=== PATIENT | female | born 1995 | race Hispanic/Latino ===

== ENCOUNTER 2018-06-28 12:21 | Emergency (ER) | payer SELFPAY ==
--- NOTE | 2018-06-28 15:23 | ER ---
Nurse's Notes [facility] Name: Leni Cason Age: 22 yrs Sex: Female : 1995 Arrival Date: 06/28/2018 Time: 12:24 Bed Waiting Private MD: None, None Diagnosis: Presentation: 06/28 12:29 Presenting complaint: Patient states: upper abd pain and vomiting since last night. aa5 Denies diarrhea. Transition of care: patient was not received from another setting of care. Onset of symptoms was June 2018. Risk Assessment: Do you want to hurt yourself or someone else? Patient reports no desire to harm self or others. Initial Sepsis Screen: Does the patient meet any 2 criteria? No. Patient's initial sepsis screen is negative. Does the patient have a suspected source of infection? No. Patient's initial sepsis screen is negative. Care prior to arrival: None. 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 - Social history:: Smoking status: Patient/guardian denies using tobacco. - Ebola Screening: : No symptoms or risks identified at this time. Assessment: 15:22 Reassessment: pt not in lobby. iw Vital Signs: 12:30 BP 115 / 78; Pulse 99; Resp 18 S; Temp 98.5(O); Pulse Ox 100% on R/A; Weight 77.11 kg aa5 (R); Height 5 ft. 4 in. (162.56 cm) (R); Pain 8/10; 12:30 Body Mass Index 29.18 (77.11 kg, 162.56 cm) aa5 ED Course: 12:24 Patient arrived in ED. mr 12:24 None, None is Private Physician. mr 12:29 Triage completed. aa5 12:29 Arm band placed on. aa5 14:34 Keyla Sanford F[facility]-C [facility] snw 14:34 Kwame Agustin MD is Attending Physician. snw 14:48 Patient's name was called from ER lobby. No response. hj 15:22 Juliana Holley, RN is Primary Nurse. iw Administered Medications: No medications were administered Outcome: 15:23 Patient left the ED. iw 15:23 Eloped from waiting room, before seeing physician Time discovered patient gone: June at 15:23 Signatures: Keyla Sanford, DIE MAKER-C DIE MAKER-Csnw Lakisha Zamorano mr Juliana Holley, RN RN Faiza Aaron RN RN aa Rambo Hernandez RN RN
== END 2018-06-28 15:23 | disposition left against medical advice (07) ==
LOC: ER 12:21
DX: R10.10 Upper abdominal pain, unspecified (principal); R11.10 Vomiting, unspecified; Z53.21 Procedure and treatment not carried out due to patient leaving prior to being seen by health care provider
CPT/HCPCS: 99281

== ENCOUNTER 2020-12-25 21:47 | Emergency (ER) | payer OTHER, SELFPAY ==
[2020-12-25 23:58] LABS: Absolute Lymphocytes (CBC) 1.4 K/uL (0.7-4.9); Basophils % 0.4 % (0-1.3); Hematocrit 29.9 % (36.0-45.0); Lymphocytes % 8.6 % (15.3-44.8); RBC Red Blood Cell Count 3.84 M/uL (3.86-4.86)
[2020-12-25 23:59] LABS: Protime INR 1.08
[2020-12-26] MEDS ORDERED: IPRATROPIUM BROM 0.5MG/2.5ML ONE (00:09)
[2020-12-26] MEDS ORDERED: NA CHLORIDE 0.9% 1,000 ML ONE (00:09)
[2020-12-26] MEDS ORDERED: AMOXICILLIN TRIHYDR 250 MG CAP ONE (00:09)
[2020-12-26] MEDS ORDERED: ALBUTEROL 2.5 MG/3 ML NEB SOL ONE (00:09)
[2020-12-26 00:12] LABS: ALT/SGPT 11 U/L (12-78); AST/SGOT 8 U/L (15-37); Albumin 2.6 g/dL (3.4-5.0); Alkaline Phosphatase 148 U/L (45-117); BUN Blood Urea Nitrogen 4 mg/dL (7-18); Bicarbonate 22 mmol/L (21-32); Bilirubin Direct < 0.1 mg/dL (0-0.2); Bilirubin Total 0.3 mg/dL (0.2-1.0); Glucose Level 89 mg/dL (74-106); NT PRO-BNP 37 pg/mL (<125); Potassium 3.7 mmol/L (3.5-5.1); Protein, Total 7.1 g/dL (6.4-8.2); Sodium Level 139 mmol/L (136-145); Troponin (Emerg Dept Use Only) < 0.02 ng/mL (0.0-0.045)
--- NOTE | 2020-12-26 01:45 | ER ---
Nurse's Notes [facility] Name: Leni Cason Age: 25 yrs Sex: Female : 1995 Arrival Date: 12/25/2020 Time: 21:53 Bed 14 Private MD: Diagnosis: Acute bronchitis, unspecified;Sepsis, unspecified organism-with tachycardia and leukocytosis Presentation: 12/25 22:51 Chief complaint: Patient states: SOB, throat discomfort, cough, slight chest pain sj1 started this morning. 8 mo preg. Coronavirus screen: Vaccine status: Patient reports being unvaccinated. Ebola Screen: Patient negative for fever greater than or equal to 101.5 degrees Fahrenheit, and additional compatible Ebola Virus Disease symptoms Patient denies exposure to infectious person. Patient denies travel to an Ebola-affected area in the 21 days before illness onset. Initial Sepsis Screen:. Risk Assessment: Do you want to hurt yourself or someone else? Patient reports no desire to harm self or others. Onset of symptoms was December 25, 2020 at 09:00. 22:51 Method Of Arrival: Ambulatory [facility] 22:51 Acuity: CHERI 2 sj1 12/26 00:20 Initial Sepsis Screen: Does the patient meet any 2 criteria? HR > 90 bpm. No. Patient's kc4 initial sepsis screen is negative. Does the patient have a suspected source of infection? No. Patient's initial sepsis screen is negative. Triage Assessment: 12/25 22:54 General: Appears in no apparent distress. Behavior is calm, cooperative, appropriate sj1 for age. Pain: Complains of pain in chest Pain does not radiate. Pain currently is 2 out of 10 on a pain scale. Quality of pain is described as pressure. EENT: Reports throat discomfort, "feels like my tonsils are swollen". Neuro: No deficits noted. Cardiovascular: Reports chest pain. Respiratory: Reports shortness of breath at rest on exertion cough that is productive. Respiratory: Onset: The symptoms/episode began/occurred this morning, the patient has mild shortness of breath. GI: No deficits noted. : No deficits noted. Derm: No deficits noted. Musculoskeletal: No deficits noted. Historical: - Allergies: 22:54 No Known Allergies; sj1 - Home Meds: 22:54 Vitamin Oral tab 1 tab once daily for [Active]; sj1 - PMHx: 22:54 None; sj1 - Immunization history:: Adult Immunizations up to date, Client reports having NOT received the Covid vaccine. - Social history:: Smoking status: Patient denies any tobacco usage or history of. - Family history:: not pertinent. Screenin/01 00:08 Abuse screen: Denies threats or abuse. Nutritional screening: No deficits noted. kc4 Difficulty chewing/swallowing? No. Tuberculosis screening: No symptoms or risk factors identified. Fall Risk None identified. Fall in past 12 months (25 points). IV access (20 points). Ambulatory Aid- None/Bed Rest/Nurse Assist (0 pts). Gait- Normal/Bed Rest/Wheelchair (0 pts). Assessment: 00:05 General: Appears in no apparent distress. well groomed, Behavior is calm, cooperative, kc4 appropriate for age, Reports feeling ill for Denies fatigue, chills. Pain: Complains of pain in chest Pain does not radiate. Pain currently is 3 out of 10 on a pain scale. Quality of pain is described as sharp, Pain began 4 hours ago. Is intermittent, Alleviated by medications, Aggravated by Noted to be restless, Also complains of shortness of breath, Current management. 00:07 Cardiovascular: Rhythm is regular. Respiratory: Airway is patent Respiratory effort is kc4 even, Breath sounds are clear bilaterally. GI: No deficits noted. : No deficits noted. EENT: No deficits noted. Derm: No deficits noted. Musculoskeletal: No deficits noted. Vital Signs: 12/25 22:51 BP 130 / 87; Pulse 141; Resp 24; Temp 99.6; Pulse Ox 96% on R/A; Weight 74.84 kg (R); [facility] Height 5 ft. 3 in. (160.02 cm) (R); Pain 2/10; 12/26 00:08 BP 116 / 52; Pulse 155; Resp 20; Temp 98.9(O); Pulse Ox 100% on R/A; Pain 0/10; kc4 01:54 BP 101 / 54; Pulse 144; Resp 20; Temp 98.9; Pulse Ox 98% on R/A; Pain 0/10; kc4 12/25 22:51 Body Mass Index 29.23 (74.84 kg, 160.02 cm) sj1 ED Course: 12/25 21:53 Patient arrived in ED. wm 22:54 Triage completed. sj1 23:15 Kaelyn Hopkins MD is Attending Physician. ma2 23:15 Rose Naidu is Primary Nurse. kc4 23:38 Inserted saline lock: 20 gauge in right antecubital area, using aseptic technique. bs2 Blood collected. 23:52 Strep Sent. ld1 23:52 Influenza Screen (a \\T\\ B) Sent. ld1 12/26 00:04 Basic Metabolic Panel Sent. kc4 00:04 LFT's Sent. kc4 00:04 Magnesium Sent. kc4 00:04 NT PRO-BNP Sent. kc4 00:04 Troponin (emerg Dept Use Only) Sent. kc4 00:04 Group A Streptococcus Rapid Sc Sent. kc4 00:04 Influenza Screen (A Sent. kc4 00:08 No provider procedures requiring assistance completed. Inserted saline lock: 20 gauge kc4 in right antecubital area, using aseptic technique. 00:08 Patient has correct armband on for positive identification. Placed in gown. Bed in low kc4 position. Call light in reach. Side rails up X 1. 00:15 Throat Culture Sent. df1 00:20 Arm band placed on right wrist. kc4 02:00 IV discontinued, intact, bleeding controlled, No redness/swelling at site. Pressure kc4 dressing applied. 02:00 COVID-19 : Document "Date of Symptom Onset" if Symptomatic. Sent. kc4 Administered Medications: 12/25 23:52 Drug: Albuterol - atroVENT (ipratropium) (3:1) (2.5 mg - 0.5 mg) 3 ml Route: Nebulizer; 1 12/26 02:04 Follow up: Response: No adverse reaction 4 12/25 23:52 Drug: Amoxicillin 875 mg Route: PO; ld1 12/26 00:04 Follow up: Response: No adverse reaction kc4 02:04 Follow up: Response: No adverse reaction 4 12/25 23:52 Drug: NS 0.9% 1000 ml Route: IV; Rate: 1 bolus; Site: right antecubital; 1 12/26 02:00 Follow up: IV Status: Completed infusion kc4 02:04 Follow up: IV Status: Completed infusion kc4 Outcome: 01:44 Discharge ordered by . ma2 01:59 Discharged to home ambulatory. kc4 01:59 Condition: stable 01:59 Discharge instructions given to patient, Instructed on discharge instructions, follow up and referral plans. Demonstrated understanding of instructions, follow-up care, medications, Prescriptions given X 1. 02:05 Patient left the ED. kc4 Signatures: Kaelyn Hopkins MD MD ma2 Inez Sanford, RN RN ld1 Guillermina Amaya Bridget RN RN bs2 Rose Naidu kc4 Annie Martinez df1 Joanie Richard, RN RN sj1
--- NOTE | 2020-12-26 01:45 | EDPHYS ---
Physician Documentation [facility] Name: Leni Cason Age: 25 yrs Sex: Female : 1995 Arrival Date: 12/25/2020 Time: 21:53 Bed 14 Private MD: ED Physician Kaelyn Hopkins HPI: 12/25 23:28 This 25 yrs old Female presents to ER via Ambulatory with complaints of ma2 Shortness Of Breath, 8mths preg. L\T\D cleared her already. 23:28 The patient has shortness of breath with light activity. The patient has shortness of ma2 breath. Onset: The symptoms/episode began/occurred gradually, 1 day(s) ago. Associated signs and symptoms: Pertinent positives: productive cough, sore throat, Pertinent negatives: fever, loss of consciousness, numbness in extremities. Severity of symptoms: At their worst the symptoms were very mild in the emergency department the symptoms are unchanged. The patient has experienced similar episodes in the past. Sore throat, cough, she does not have any shortness of breath, however she does have URI symptoms. Mostly sore throat. No lower extremity swelling, never had DVTs, O2 sat is 100 on room air.. Historical: - Allergies: 22:54 No Known Allergies; sj1 - Home Meds: 22:54 Vitamin Oral tab 1 tab once daily for [Active]; sj1 - PMHx: 22:54 None; sj1 - Immunization history:: Adult Immunizations up to date, Client reports having NOT received the Covid vaccine. - Social history:: Smoking status: Patient denies any tobacco usage or history of. - Family history:: not pertinent. ROS: 23:28 Constitutional: Negative for fever, chills, and weight loss. ma2 23:28 All other systems are negative. Exam: 23:28 Constitutional: This is a well developed, well nourished patient who is awake, alert, ma2 and in no acute distress. Head/Face: Normocephalic, atraumatic. Eyes: Pupils equal round and reactive to light, extra-ocular motions intact. Lids and lashes normal. Conjunctiva and sclera are non-icteric and not injected. Cornea within normal limits. Periorbital areas with no swelling, redness, or edema. ENT: Nares patent. No nasal discharge, no septal abnormalities noted. Tympanic membranes are normal and external auditory canals are clear. Oropharynx with no redness, swelling, or masses, exudates, or evidence of obstruction, uvula midline. Mucous membranes moist. Neck: Trachea midline, no thyromegaly or masses palpated, and no cervical lymphadenopathy. Supple, full range of motion without nuchal rigidity, or vertebral point tenderness. No Meningismus. Chest/axilla: Normal chest wall appearance and motion. Nontender with no deformity. No lesions are appreciated. Cardiovascular: + tachycardia, with Regular rhythm with a normal S1 and S2. No gallops, murmurs, or rubs. Normal PMI, no JVD. No pulse deficits. Respiratory: Lungs have equal breath sounds bilaterally, clear to auscultation and percussion. No rales, rhonchi or wheezes noted. No increased work of breathing, no retractions or nasal flaring. Abdomen/GI: Soft, non-tender, with normal bowel sounds. No distension or tympany. No guarding or rebound. No evidence of tenderness throughout. Back: No spinal tenderness. No costovertebral tenderness. Full range of motion. Skin: Warm, dry with normal turgor. Normal color with no rashes, no lesions, and no evidence of cellulitis. MS/ Extremity: Pulses equal, no cyanosis. Neurovascular intact. Full, normal range of motion. Neuro: Awake and alert, GCS 15, oriented to person, place, time, and situation. Cranial nerves II-XII grossly intact. Motor strength 5/5 in all extremities. Sensory grossly intact. Cerebellar exam normal. Normal gait. Vital Signs: 22:51 BP 130 / 87; Pulse 141; Resp 24; Temp 99.6; Pulse Ox 96% on R/A; Weight 74.84 kg (R); sj1 Height 5 ft. 3 in. (160.02 cm) (R); Pain 2/10; 12/26 00:08 BP 116 / 52; Pulse 155; Resp 20; Temp 98.9(O); Pulse Ox 100% on R/A; Pain 0/10; kc4 01:54 BP 101 / 54; Pulse 144; Resp 20; Temp 98.9; Pulse Ox 98% on R/A; Pain 0/10; kc4 12/25 22:51 Body Mass Index 29.23 (74.84 kg, 160.02 cm) sj1 MDM: 12/25 23:15 Patient medically screened. ma2 23:28 Differential diagnosis: Anemia asthma, pneumonia, reactive airway disease. ma2 12/26 01:39 Data reviewed: vital signs, nurses notes. Counseling: I had a detailed discussion with ma2 the patient and/or guardian regarding: the historical points, exam findings, and any diagnostic results supporting the discharge/admit diagnosis, the presence of at least one elevated blood pressure reading (>120/80) during this emergency department visit, the need for outpatient follow up. Response to treatment: the patient's symptoms have markedly improved after treatment. ED course: Patient is likely having bronchitis, less likely pneumonia, given her SPO2 is 100 on room air, she does not have any respiratory symptoms, most of her symptoms are upper respiratory, that include sore throat and dry cough and runny nose. She did had prolonged expiratory phase, she felt much better after breathing treatment. She was given Augmentin in the ER. Her heart rate has been high, upon arrival it was 140 bpm, it went up to 155 while she was taking the albuterol nebulizer, heart rate went down after that to 140 bpm. Likely her tachycardia of 155 was due to the albuterol . Either way, she does have tachycardia, and elevated white count. In the setting of bronchitis plus minus possible pneumonia. And so I recommended admission to observation, for IV fluids and rechecking white count, and to observe heart rate. However patient would like to be discharged. She would like to take albuterol solution since she has a nebulizer at home, and she will refill her Augmentin and take it at home. She will return to ER if anything get worsen. I discussed risk of leaving against my recommendation. She understands all the risk involved, she still would like to be discharged despite my recommendation of admission.. 12/25 23:16 Order name: Influenza Screen (a \T\ B) [facility] 12/25 23:16 Order name: Strep [facility] 12/25 23:16 Order name: Influenza Screen (A ; Complete Time: 00:38 EDMS 12/25 23:16 Order name: Group A Streptococcus Rapid Sc; Complete Time: 00:38 EDMS 12/25 23:31 Order name: Basic Metabolic Panel; Complete Time: 00:38 [facility] 12/25 23:31 Order name: CBC with Diff; Complete Time: 00:04 ma2 12/25 23:31 Order name: LFT's; Complete Time: 00:38 ma2 12/25 23:31 Order name: Magnesium; Complete Time: 00:38 ma2 12/25 23:31 Order name: NT PRO-BNP; Complete Time: 00:38 ma2 12/25 23:31 Order name: PT-INR; Complete Time: 00:04 ma2 12/25 23:31 Order name: Troponin (emerg Dept Use Only); Complete Time: 00:38 ma2 12/26 00:10 Order name: SARS-COV-2 RT PCR; Complete Time: 00:38 EDMS 12/25 23:31 Order name: EKG; Complete Time: 23:32 ma2 12/25 23:31 Order name: Cardiac monitoring; Complete Time: 23:52 ma2 12/25 23:31 Order name: EKG - Nurse/Tech; Complete Time: 23:52 ma2 12/25 23:31 Order name: IV Saline Lock; Complete Time: 23:52 ma2 12/25 23:31 Order name: Labs collected and sent; Complete Time: 23:52 ma2 12/25 23:31 Order name: O2 Per Protocol; Complete Time: 23:52 ma2 12/25 23:31 Order name: O2 Sat Monitoring; Complete Time: 23:52 ma2 12/26 00:14 Order name: Throat Culture EDMS Administered Medications: 12/25 23:52 Drug: Albuterol - atroVENT (ipratropium) (3:1) (2.5 mg - 0.5 mg) 3 ml Route: Nebulizer; 1 12/26 02:04 Follow up: Response: No adverse reaction kc4 12/25 23:52 Drug: Amoxicillin 875 mg Route: PO; ld1 12/26 00:04 Follow up: Response: No adverse reaction kc4 02:04 Follow up: Response: No adverse reaction 4 12/25 23:52 Drug: NS 0.9% 1000 ml Route: IV; Rate: 1 bolus; Site: right antecubital; 1 12/26 02:00 Follow up: IV Status: Completed infusion kc4 02:04 Follow up: IV Status: Completed infusion kc4 Disposition Summary: 10/01/21 01:44 Discharge Ordered Location: Home ma2 Condition: Stable ma2 Diagnosis - Acute bronchitis, unspecified ma2 - Sepsis, unspecified organism - with tachycardia and leukocytosis ma2 Followup: ma2 - With: Private Physician - When: Tomorrow - Reason: Continuance of care Discharge Instructions: - Discharge Summary Sheet ma2 - Acute Bronchitis, Adult ma2 Forms: - Medication Reconciliation Form ma2 - Thank You Letter ma2 - Antibiotic Education ma2 - Prescription Opioid Use ma2 Prescriptions: - Augmentin 875-125 mg Oral Tablet - take 1 tablet by ORAL route every 12 hours for 10 days; 20 tablet; Refills: 0, ma2 Product Selection Permitted Signatures: Dispatcher [employer] EDMS Kaelyn Hopkins MD MD ma2 Inez Sanford RN RN ld1 Joanie Richard RN RN sj1 Rose Naidu 4
[2020-12-26 02:15] VITALS: TEMP 98.9
[2020-12-26 02:17] VITALS: BP 101/54; O2SAT 98
--- NOTE | 2020-12-26 10:40 | EKG ---
Test Date: 2020-12-25 Test Time: 23:08:37 [address] Attendant: CAYLA MEASUREMENT RESULTS: Intervals: Rate: 143 LA: 142 QRSD: 58 QT: 262 QTc: 404 [place]: P: 53 LA: 142 QRS: 66 T: 34 INTERPRETIVE STATEMENTS: Sinus tachycardia Otherwise normal ECG No previous ECG available for comparison Electronically Signed On 12-26-20 10:39:42 CDT by Alberto Chen
== END 2020-12-26 02:05 | disposition home or self-care (01) ==
LOC: ER 21:47
DX: O99.513 Diseases of the respiratory system complicating pregnancy, third trimester (principal); A41.9 Sepsis, unspecified organism; J20.9 Acute bronchitis, unspecified; Z20.822 Contact with and (suspected) exposure to COVID-19; Z3A.00 Weeks of gestation of pregnancy not specified
CPT/HCPCS: 96361; 93005; 87070; 85025; 80048; 36415; 83735; 85610; 80076; 87081; 84484; 83880; 87804 ×2; 96360; 99284; U0003

== ENCOUNTER 2022-04-25 17:33 | Emergency (ER) | payer OTHER ==
[2022-04-25] MEDS ORDERED: ACETAMINOPHEN 325 MG TABLET ONE (19:34)
[2022-04-25] MEDS ORDERED: DIPHENHYDRAMINE 50 MG/ML VIAL ONE (19:34)
[2022-04-25] MEDS ORDERED: KETOROLAC 30 MG/ML INJ ONE (19:34)
[2022-04-25] MEDS ORDERED: NA CHLORIDE 0.9% 1,000 ML ONE ×2 (19:34→22:07)
[2022-04-25] MEDS ORDERED: METOCLOPRAMIDE 10 MG/2mL INJ ONE (19:34)
[2022-04-25 19:48] LABS: Absolute Lymphocytes (CBC) 0.4 K/uL (0.7-4.9); Hematocrit 37.6 % (36.0-45.0); Lymphocytes % 5.6 % (15.3-44.8); MCV 82.2 fL (80-100); MPV 7.5 fL (7.6-11.3); RBC Red Blood Cell Count 4.57 M/uL (3.86-4.86)
[2022-04-25 20:01] LABS: Potassium 3.5 mmol/L (3.5-5.1)
[2022-04-25 20:29] LABS: SARS-COV-2 RT PCR POSITIVE (NEGATIVE)
--- NOTE | 2022-04-25 20:40 | RAD REPORT ---
EXAM DESCRIPTION: CT - Head Brain Wo Cont - 04/25/2022 8:25 pm CLINICAL HISTORY: headache, numbness COMPARISON: No comparisons TECHNIQUE: All CT scans are performed using dose optimization technique as appropriate and may inclu de automated exposure control or mA/KV adjustment according to patient size. FINDINGS: No intracranial hemorrhage, hydrocephalus or extra-axial fluid collection.No areas of brai n edema or evidence of midline shift. The paranasal sinuses and mastoids are clear. The calvarium is intact. IMPRESSION: No acute intracranial abnormality.
[2022-04-25 21:56] LABS: Urine Blood 1+ (Negative); Urine Glucose Negative (Negative); Urine Protein Negative (Negative)
--- NOTE | 2022-04-25 22:04 | RAD REPORT ---
EXAM DESCRIPTION: CT - Chest For Pe Angio - 04/25/2022 9:54 pm CLINICAL HISTORY: shortness of breath, tachycardia COMPARISON: No comparisons TECHNIQUE: Dynamically enhanced axial 3 mm thick images of the chest were obtained during administra tion of <100> mL Isovue 370 IV contrast. Coronal and oblique reconstruction images were generated and reviewed. Exam utilizes a protocol for optimal evaluation of pulmonary arterial tree. Maximum intensity projections 3D imaging was utilized All CT scans are performed using dose optimization technique as appropriate and may include automated exposure control or mA/KV adjustment according to patient size. FINDINGS: Chest Wall: No suspicious thyroid nodules or pathologic lymphadenopathy. Lungs: Elevated left hemidiaphragm. Portions of the right lung base are excluded from the field of vi ew. Pleura: No significant effusions or pneumothorax. Mediastinum/lake: No pathologic lymphadenopathy. Pulmonary arteries/Aorta: No filling defect identified. No aortic aneurysm. Heart: No significant pericardial effusion. Normal heart size. Upper abdomen: No acute abnormality. Bones: No acute abnormality. IMPRESSION: Negative for pulmonary embolism. Elevated left hemidiaphragm of uncertain chronicity. No acute findings otherwise identified.
--- NOTE | 2022-04-25 23:06 | EDPHYS ---
Physician Documentation [facility] Name: Leni Kaufman Age: 26 yrs Sex: Female : 1995 Arrival Date: 04/25/2022 Time: 17:35 Bed 19 Private MD: ED Physician Florentino Hernandez HPI: 04/25 23:00 This 26 yrs old Female presents to ER via Ambulatory with complaints of kb Numbness Of Arm, Headache - migraine. 23:00 The patient complains of pain to the top of head. The patient describes the headache as kb constant, throbbing. Onset: The symptoms/episode began/occurred this morning. Associated signs and symptoms: Pertinent positives: fever, nausea, Photophobia. Severity of symptoms: At its worst the pain was moderate, in the emergency department the pain is unchanged. Headache History: The patient has had previous headaches and this one is similar to previous episodes, and this one is more severe than previous episodes. The symptoms are alleviated by nothing. the symptoms are aggravated by lights, noise. The patient has experienced similar episodes in the past, a few times. The patient has not recently seen a physician. Patient reports migraine that started this morning with fever, intermittent numbness to bilateral arms, body aches, malaise, fatigue, sneezing. States she has had about 4 migraines in the past but this 1 is the worst. Slight improvement after ibuprofen.. 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 - Social history:: Smoking status: Patient denies any tobacco usage or history of. ROS: 23:00 Cardiovascular: Negative for chest pain, palpitations, and edema. kb 23:00 Constitutional: Positive for body aches, chills, fatigue, fever, malaise. 23:00 ENT: Positive for Sneezing. 23:00 Respiratory: Positive for cough. 23:00 Abdomen/GI: Positive for nausea. 23:00 Neuro: Positive for headache, numbness. 23:00 All other systems are negative. Exam: 20:16 Constitutional: This is a well developed, well nourished patient who is awake, alert, kb and in no acute distress. Head/Face: Normocephalic, atraumatic. ENT: Moist Mucous membranes Cardiovascular: Regular rate and rhythm with a normal S1 and S2. No gallops, murmurs, or rubs. No pulse deficits. Respiratory: Respirations even and unlabored. No increased work of breathing. Talking in full sentences Abdomen/GI: Soft, non-tender. No distention Skin: Warm, dry with normal turgor. Normal color. MS/ Extremity: Pulses equal, no cyanosis. Neurovascular intact. Full, normal range of motion. Neuro: Awake and alert, GCS 15, oriented to person, place, time, and situation. Moves all extremities. Normal gait. Psych: Awake, alert, with orientation to person, place and time. Behavior, mood, and affect are within normal limits. 20:16 ECG was reviewed by the Attending Physician. Vital Signs: 17:51 BP 136 / 100; Pulse 118; Resp 20; Temp 100.6; Pulse Ox 99% ; Weight 78.93 kg; Height 5 ko1 ft. 4 in. (162.56 cm); Pain 10/10; 19:30 BP 138 / 82; Pulse 145; Resp 22 S; Pulse Ox 98% on R/A; ha1 20:00 BP 142 / 85; Pulse 138; Resp 20; Pulse Ox 100% on 10% Non-rebreather mask; ha1 20:20 Temp 99.8(O); ha1 20:46 BP 123 / 71; Pulse 128; Resp 18; Pulse Ox 99% on R/A; ha1 22:01 BP 119 / 74; Pulse 112; Resp 16 S; Temp 98.9; Pulse Ox 99% on R/A; ha1 23:00 BP 111 / 80; Pulse 95; Resp 16 S; Pulse Ox 99% on R/A; ha1 17:51 Body Mass Index 29.87 (78.93 kg, 162.56 cm) ko1 Jennifer Coma Score: 23:03 Eye Response: spontaneous(4). Verbal Response: oriented(5). Motor Response: obeys kb commands(6). Total: 15. MDM: 18:57 Patient medically screened. kb 23:00 Data reviewed: vital signs, nurses notes. kb 23:03 Differential diagnosis: COVID, flu, Phelps, migraine, anxiety. Counseling: I had a kb detailed discussion with the patient and/or guardian regarding: the historical points, exam findings, and any diagnostic results supporting the discharge/admit diagnosis, lab results, radiology results, the need for outpatient follow up, a family practitioner, to return to the emergency department if symptoms worsen or persist or if there are any questions or concerns that arise at home. Response to treatment: the patient's symptoms have resolved after treatment. 23:04 ED course: Patient reports she is feeling so much better. Is ready to go home.. kb 04/25 18:58 Order name: CBC with Diff; Complete Time: 20:02 kb 04/25 18:58 Order name: Basic Metabolic Panel; Complete Time: 20:02 kb 04/25 18:58 Order name: COVID-19/FLU A+B; Complete Time: 20:30 kb 04/25 18:58 Order name: Phelps Screen Profile; Complete Time: 20:16 kb 04/25 20:30 Order name: D-Dimer; Complete Time: 21:18 kb 04/25 21:56 Order name: Urine Dipstick-Ancillary; Complete Time: 21:57 EDMS 04/25 19:03 Order name: CT Head Brain wo Cont; Complete Time: 20:45 kb 04/25 21:18 Order name: CT Chest For PE Angio; Complete Time: 22:14 kb 04/25 21:57 Order name: Urine --Ancillary (enter results); Complete Time: 22:14 mw2 04/25 18:58 Order name: IV Start; Complete Time: 19:59 kb 04/25 18:58 Order name: Urine Dipstick-Ancillary (obtain specimen); Complete Time: 21:56 kb 04/25 18:58 Order name: Urine Test (obtain specimen); Complete Time: 21:56 kb 04/25 20:03 Order name: Vital Signs; Complete Time: 20:49 kb EC:16 Rate is 131 beats/min. Rhythm is regular. QRS Jeff is Normal. RI interval is normal at kb 146 msec. QRS interval is normal at 76 msec. QT interval is normal at 428 msec. Administered Medications: 19:20 Drug: Tylenol 650 mg Route: PO; ha1 20:20 Follow up: Response: No adverse reaction; Temperature is decreased ha1 19:39 Drug: NS 0.9% 1000 ml Route: IV; Rate: 1000 ml; Site: right antecubital; ha1 21:00 Follow up: Response: No adverse reaction; IV Status: Completed infusion; IV Intake: ha1 1000ml 19:40 Drug: Ketorolac 15 mg Route: IVP; Site: right antecubital; ha1 20:15 Follow up: Response: No adverse reaction; Pain is decreased ha1 19:43 Drug: Benadryl (diphenhydrAMINE) 12.5 mg Route: IVP; Site: right antecubital; ha1 20:15 Follow up: Response: No adverse reaction ha1 19:46 Drug: Reglan (metoCLOPramide) 10 mg Route: IVP; Site: right antecubital; ha1 20:15 Follow up: Response: No adverse reaction ha1 22:10 Drug: NS 0.9% 1000 ml Route: IV; Rate: 1000 ml; Site: right antecubital; ha1 23:43 Follow up: Response: No adverse reaction; IV Status: Completed infusion; IV Intake: ha1 1000ml Disposition Summary: 04/25/22 23:05 Discharge Ordered Location: Home kb Condition: Stable kb Diagnosis - Migraine without aura, not intractable kb - SARS-associated coronavirus as the cause of diseases classified elsewhere kb - Dehydration kb Followup: kb - With: Emergency Department - When: As needed - Reason: Worsening of condition Followup: kb - With: Private Physician - When: 2 - 3 days - Reason: Recheck today's complaints, Continuance of care, Re-evaluation by your physician Discharge Instructions: - Discharge Summary Sheet kb - Migraine Headache, [id number] kb - COVID-19 kb - Viral Illness, Adult kb Forms: - Medication Reconciliation Form kb - Thank You Letter kb - Antibiotic Education kb - Prescription Opioid Use kb Signatures: Dispatcher [employer] EDClaudine Shell, LPN RN HOSPICE-C LPN RN HOSPICE-Uma Olmedo RN RN ha1 Selam Saucedo RN RN ko1 Corrections: (The following items were deleted from the chart) 17:56 17:56 Home Meds: Vitamin Oral tab 1 tab once daily for ; ko1 ko1
--- NOTE | 2022-04-25 23:06 | ER ---
Nurse's Notes [facility] Name: Leni Kaufman Age: 26 yrs Sex: Female : 1995 Arrival Date: 04/25/2022 Time: 17:35 Bed 19 Private MD: Diagnosis: Migraine without aura, not intractable;SARS-associated coronavirus as the cause of diseases classified elsewhere;Dehydration Presentation: 04/25 17:51 Chief complaint: Patient states: started sneezing yesterday afternoon, developed a ko1 migraine this morning about 0400, has had a fever since 0400 also, unknown how high. now bilateral hands feel like they are asleep. Coronavirus screen: fever, headache. Ebola Screen: No symptoms or risks identified at this time. Initial Sepsis Screen: Does the patient meet any 2 criteria? No. Patient's initial sepsis screen is negative. Does the patient have a suspected source of infection? No. Patient's initial sepsis screen is negative. Risk Assessment: Do you want to hurt yourself or someone else? Patient reports no desire to harm self or others. Onset of symptoms was April 25, 2022 at 04:00. 17:51 Method Of Arrival: Ambulatory ko1 17:51 Acuity: CHERI 3 ko1 Triage Assessment: 17:56 Headache History: The patient has had previous headaches and this one is similar to ko1 previous episodes. General: Appears distressed, uncomfortable, Behavior is cooperative, appropriate for age, anxious, crying, restless. Pain: Pain at worst was 10 out of 10 on a pain scale. Pain began gradually, Also complains of no other associated symptoms. Neuro: No deficits noted. 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 - Social history:: Smoking status: Patient denies any tobacco usage or history of. Screenin:50 [facility] ED Fall Risk Assessment (Adult) History of falling in the last 3 months, ha1 including since admission No falls in past 3 months (0 pts) Confusion or Disorientation No (0 pts) Intoxicated or Sedated No (0 pts) Impaired Gait No (0 pts) Mobility Assist Device Used No (0 pt) Altered Elimination No (0 pt) Score/Fall Risk Level 0 - 2 = Low Risk Oriented to surroundings, Maintained a safe environment, Educated pt \T\ family on fall prevention, incl call for assistance when getting out of bed, Hourly rounding (assess needs \T\ fall precautionary measures) done. 20:10 Abuse screen: Denies threats or abuse. Denies injuries from another. Nutritional ha1 screening: No deficits noted. Tuberculosis screening: No symptoms or risk factors identified. Assessment: 19:25 General: Appears uncomfortable, Behavior is crying. ha1 19:25 Pain: Complains of pain in head Pain does not radiate. Pain currently is 10 out of 10 ha1 on a pain scale. Quality of pain is described as throbbing, Pain began suddenly. Neuro: Level of Consciousness is awake, alert, obeys commands, Oriented to person, place, time, situation. 19:25 Neuro: Reports numbness in right arm and left arm. Cardiovascular: Heart tones S1 S2 ha1 present Capillary refill < 3 seconds Patient's skin is warm and dry. Rhythm is sinus tachycardia. Respiratory: Airway is patent Respiratory effort is even, unlabored, Respiratory pattern is regular, symmetrical. GI: Abdomen is flat, non-distended. : No signs and/or symptoms were reported regarding the genitourinary system. EENT: No deficits noted. No signs and/or symptoms were reported regarding the EENT system. Derm: Skin is healthy with good turgor, Skin is dry, Skin is normal. Musculoskeletal: Circulation, motion, and sensation intact. Range of motion: intact in all extremities. 19:30 Reassessment: notified care provider of elevated HR. ha1 20:30 Reassessment: Patient and/or family updated on plan of care and expected duration. Pain ha1 level reassessed. Patient is alert, oriented x 3, equal unlabored respirations, skin warm/dry/pink. Patient states feeling better. Patient states symptoms have improved. 21:30 Reassessment: Patient and/or family updated on plan of care and expected duration. Pain ha1 level reassessed. Patient is alert, oriented x 3, equal unlabored respirations, skin warm/dry/pink. Patient states feeling better. Patient states symptoms have improved. 22:30 Reassessment: Patient and/or family updated on plan of care and expected duration. Pain ha1 level reassessed. Patient is alert, oriented x 3, equal unlabored respirations, skin warm/dry/pink. Patient denies pain at this time. Patient states feeling better. Patient states symptoms have improved. 23:30 Reassessment: Patient and/or family updated on plan of care and expected duration. Pain ha1 level reassessed. Patient is alert, oriented x 3, equal unlabored respirations, skin warm/dry/pink. Patient denies pain at this time. Patient states feeling better. Vital Signs: 17:51 BP 136 / 100; Pulse 118; Resp 20; Temp 100.6; Pulse Ox 99% ; Weight 78.93 kg; Height 5 ko1 ft. 4 in. (162.56 cm); Pain 10/10; 19:30 BP 138 / 82; Pulse 145; Resp 22 S; Pulse Ox 98% on R/A; ha1 20:00 BP 142 / 85; Pulse 138; Resp 20; Pulse Ox 100% on 10% Non-rebreather mask; ha1 20:20 Temp 99.8(O); ha1 20:46 BP 123 / 71; Pulse 128; Resp 18; Pulse Ox 99% on R/A; ha1 22:01 BP 119 / 74; Pulse 112; Resp 16 S; Temp 98.9; Pulse Ox 99% on R/A; ha1 23:00 BP 111 / 80; Pulse 95; Resp 16 S; Pulse Ox 99% on R/A; ha1 17:51 Body Mass Index 29.87 (78.93 kg, 162.56 cm) ko1 Jennifer Coma Score: 23:03 Eye Response: spontaneous(4). Verbal Response: oriented(5). Motor Response: obeys kb commands(6). Total: 15. ED Course: 17:35 Patient arrived in ED. am2 17:56 Triage completed. ko1 17:56 Arm band placed on right wrist. ko1 18:57 [facility]C [facility] kb 18:57 Florentino Hernandez MD is Attending Physician. kb 19:16 Uma Vences RN is Primary Nurse. ha1 19:55 Inserted saline lock: 20 gauge in right antecubital area, using aseptic technique. ha1 Blood collected. 20:26 CT Head Brain wo Cont In Process Unspecified. EDMS 20:48 Patient has correct armband on for positive identification. Placed in gown. Bed in low ha1 position. Call light in reach. Side rails up X 1. 21:55 CT Chest For PE Angio In Process Unspecified. EDMS 23:42 No provider procedures requiring assistance completed. IV discontinued, intact, ha1 bleeding controlled, No redness/swelling at site. Pressure dressing applied. Administered Medications: 19:20 Drug: Tylenol 650 mg Route: PO; ha1 20:20 Follow up: Response: No adverse reaction; Temperature is decreased ha1 19:39 Drug: NS 0.9% 1000 ml Route: IV; Rate: 1000 ml; Site: right antecubital; ha1 21:00 Follow up: Response: No adverse reaction; IV Status: Completed infusion; IV Intake: ha1 1000ml 19:40 Drug: Ketorolac 15 mg Route: IVP; Site: right antecubital; ha1 20:15 Follow up: Response: No adverse reaction; Pain is decreased ha1 19:43 Drug: Benadryl (diphenhydrAMINE) 12.5 mg Route: IVP; Site: right antecubital; ha1 20:15 Follow up: Response: No adverse reaction ha1 19:46 Drug: Reglan (metoCLOPramide) 10 mg Route: IVP; Site: right antecubital; ha1 20:15 Follow up: Response: No adverse reaction ha1 22:10 Drug: NS 0.9% 1000 ml Route: IV; Rate: 1000 ml; Site: right antecubital; ha1 23:43 Follow up: Response: No adverse reaction; IV Status: Completed infusion; IV Intake: ha1 1000ml Medication: 23:43 VIS not applicable for this client. ha1 Intake: 21:00 IV: 1000ml; Total: 1000ml. ha1 23:43 IV: 1000ml; Total: 2000ml. ha1 Outcome: 23:05 Discharge ordered by . anastasiia 23:42 Discharged to home ambulatory. ha1 23:42 Condition: stable 23:42 Discharge instructions given to patient, Instructed on discharge instructions, follow up and referral plans. Demonstrated understanding of instructions, follow-up care. 23:46 Patient left the ED. ha1 Signatures: Dispatcher [employer] EDMS Claudine Brunson, DELTA-C STONE[employer]-Bibi Kimball Heidy, RN RN ha1 Selam Saucedo, CARLOS RN ko1 Corrections: (The following items were deleted from the chart) 17:56 17:56 Home Meds: Vitamin Oral tab 1 tab once daily for ; ko1 ko1 04/26 01:09 04/25 19:25 General: Appears uncomfortable, Behavior is crying, ha1 ha1
[2022-04-26 00:32] VITALS: O2SAT 99
[2022-04-26 00:33] VITALS: TEMP 98.9
[2022-04-26 00:34] VITALS: BP 111/80
--- NOTE | 2022-04-27 17:01 | EKG ---
Test Date: 2022-04-25 Test Time: 19:49:11 Mine Laborer: JACINTA MEASUREMENT RESULTS: Intervals: Rate: 131 TN: 146 QRSD: 76 QT: 290 QTc: 428 [place]: P: 56 TN: 146 QRS: 81 T: 22 INTERPRETIVE STATEMENTS: Sinus tachycardia Otherwise normal ECG No previous ECG available for comparison Electronically Signed On 04-27-22 16:57:14 DRAFTER ENGINEERING by Pasquale Whitt
== END 2022-04-25 23:46 | disposition home or self-care (01) ==
LOC: ER 17:33
DX: U07.1 COVID-19 (principal); E86.0 Dehydration; G43.009 Migraine without aura, not intractable, without status migrainosus
CPT/HCPCS: 96361; 93005; 85025; 80048; 36415; 86308; 81025; 85379; 81003; 0240U; 70450; 71275; 96375; 96374; 99284; Q9967; J2765; J1200; J7030 ×2

== ENCOUNTER 2023-03-02 22:59 | Emergency (ER) | payer OTHER ==
--- OUTSIDE RECORDS SUMMARY | 2023-03-02 23:03 | XMS REPORT | Continuity of Care Document ---
Author Name Unknown Address [address] [facility] [address] [place] [id number] [facility] Address [address] [facility]. [address] [place] [address] Care Team Providers Care [place] Opener Name Role Phone PCP, PATIENT DOES NOT HAVE A Primary Care Physic amrit Unavailable TG MANN Attending Clinician Unavailable Tg Mann MD Attending Clinician [phone] Unknown, Attending Attending Clinician Unavailab le Doctor Unassigned, [place] Attending Clinician U Sofia Hernandez Attending Clinician [phone] VIVIEN SO Attending Clinician UnavailDARLINE Barrow Attending Clinician UnavailDarline Barrow MD Attending Clinician [phone] Kareem Stephens MD Attending Clinician [phone] Audrey Mclaughlin MD Attending Clinician [phone] Samantha Rey MD Attending Clinician [phone] Vivien King Attending Clinician [phone] BAILEY VELARDE Attending Clinician UnavailDeanne Mccarthy RN Attending Clinician Unavailab Marisol Dave Attending Clinician + MARISOL LOUIS Attending Clinician Unavail able José Khalil Attending Clinician Ultrasound, [facility] Attending Clinician Unavailchristie Cano MD, Sherrill Attending Clinician [phone] Bianca GONZALEZ, Veronika Wyatt Attending Clinician Unavailable Stephanie Mabry MD, Castro Attending Clinician + JOSÉ MATTA Attending Clinician Unavailab Zo MERIDA, Liliane M Attending Clinician [phone] [facility] Attending Clinician Unavailable DARLINE RIVERA Admitting Clinician UnavailDarline Barrow MD Admitting Clinician [phone] Jerome MERIDA, Sherrill Admitting Clinician [phone] Payers Payer Name Policy Type Policy Number Effective Date Expirati on Date Source Sliding Fee - Cat 1 P [id number] 2022 00:00:00 2023 00:00:00 [employer] MEDICA[employer] [id number] 2020 00:00:00 MEDICAID OF [place] [id number] 2020 00:00:00 MEDICAID PENDING PENDING 2020 00:00:00 Problems Condition Name Condition Details Condition Category Status Onset Date Resolution Date Last Treatment Date Treating Clinician Comments Source Single live Single live Disease Active 2020-03 00:00: 00 [facility] (normal spontaneou s vaginal delivery) (normal spontaneou s vaginal delivery) Disease Active 2020-03 00:00: 00 [facility] COVID-19 virus IgG antibody detected COVID-19 virus IgG antibody detected Disease Active 2020-03 0- 00:00: 00 [facility] Anemia of mother in , antepartum Anemia of mother in , antepartum Disease Active 8-04 00:00: 00 [facility] High-risk in second trimester High-risk in second trimester Disease Active - 00:00: 00 [facility] Obesity affecting , antepartum Obesity affecting , antepartum Disease Active 3- 00:00: 00 [facility] 39 weeks gestation of 39 weeks gestation of Disease Active 2018-0318 00:00: 00 [facility] Tubal ligation status Tubal ligation status Disease Active 2018-03 025 00:00: 00 [facility] Rubella non-immune status, antepartum Rubella non-immune status, antepartum Disease Active 08-03 00:00: 00 Overview: Formattin g of this note might be different from the original. Address pp [facility] Susceptibl e to varicella (non-immun e), currently Susceptibl e to varicella (non-immun e), currently Disease Active 08-03 00:00: 00 Overview: Formattin g of this note might be different from the original. Address pp [facility] Multiparit y Multiparit y Disease Active 08-01 00:00: 00 [facility] Allergies, Adverse Reactions, Alerts Allergy Name Allergy Type Status Severity Reaction(s) Onset Date Inactive Date Treating Clinician Comments Source NO KNOWN ALLERGIE S Drug Class Active [facility] Social History Social Habit Start Date Stop Date Quantity Comments Source ASSERTION 2020-05-16 00:00:00 [facility] Exposure to SARS-CoV-2 (event) 2022-02-27 00:00:00 2022-03-09 18:04:00 Not sure [facility] Alcohol intake 2022-03-09 00:00:00 2022-03-09 00:00:00 Current non-drinker of alcohol (finding) [facility] Tobacco use and exposure 2017-08-01 00:00:00 2017-08-01 00:00:00 Smokeless tobacco non-user [facility] Sex Assigned At 1995 00:00:00 1995 00:00:00 [facility] Smoking Status Start Date Stop Date Source Never smoked tobacco [facility] Medications Ordered Medication Name Filled Medication Name Start Date Stop Date Current Medication? Ordering Clinician Indication Dosage Frequency Signature (SIG) Comments Components Source ondansetron (ZOFRAN-ODT ) disintegrat ing tablet 8 mg 2021-03 01:30: 00 03-10 00:29 :00 No [id number] [address] [facility] ondansetron (ZOFRAN-ODT ) disintegrat ing tablet 8 mg 2021-03 01:30: 00 03-10 00:29 :00 No [id number] 8mg 8 mg, Oral, ONCE, 1 dose, On Tue03/09/22 at 1930, Routine [facility] famotidine 40 mg tablet 2021-03 00:00: 00 Yes [id number] 40mg Take 1 tablet by mouth in the morning. [facility] ondansetron 4 mg disintegrat ing tablet 2021-03 00:00: 00 Yes [id number] 4mg Take 1 tablet by mouth every 8 (eight) hours as needed for Nausea and Vomiting (N/V). [facility] sucralfate 1 gram tablet 2021-03 00:00: 00 03-15 05:59 :00 No [id number] 1g Take 1 tablet by mouth before meals and at bedtime for 5 days. [facility] bismuth subsalicyla te (PEPTO-BISM OL) 262 mg chewable tablet 2021-03 00:00: 00 03-13 05:59 :00 No [id number] 524mg Take 2 tablets by mouth every 4 (four) hours as needed for Pain (scale 4-6) or Pain (scale 7-10) for up to 3 days. [facility] vitamin w/FA tablet 2020-03 00:00: 00 Yes [id number] 1{tbl} Take 1 tablet by mouth daily. [facility] docusate calcium 240 mg capsule 2020-03 00:00: 00 Yes [id number] 240mg Take 1 capsule by mouth once daily as needed for Constipati on. [facility] ferrous sulfate 325 mg (65 mg iron) tablet 2020-03 00:00: 00 Yes [id number] 325mg Take 1 tablet by mouth 2 (two) times daily. [facility] ibuprofen 600 mg tablet 2020-03 00:00: 00 Yes [id number] 600mg Take 1 tablet by mouth every 6 (six) hours as needed (Pain). Take with food or milk. [facility] vitamin w/FA tablet 2020-03 00:00: 00 Yes [id number] 1{tbl} Take 1 tablet by mouth daily. [facility] docusate calcium 240 mg capsule 2020-03 00:00: 00 Yes [id number] 240mg Take 1 capsule by mouth once daily as needed for Constipati on. [facility] ferrous sulfate 325 mg (65 mg iron) tablet 2020-03 00:00: 00 Yes [id number] 325mg Take 1 tablet by mouth 2 (two) times daily. [facility] ibuprofen 600 mg tablet 2020-03 00:00: 00 Yes [id number] 600mg Take 1 tablet by mouth every 6 (six) hours as needed (Pain). Take with food or milk. [facility] vitamin w/FA tablet 2020-03 00:00: 00 Yes [id number] 1{tbl} Take 1 tablet by mouth daily. [facility] docusate calcium 240 mg capsule 2020-03 00:00: 00 Yes [id number] 240mg Take 1 capsule by mouth once daily as needed for Constipati on. [facility] ferrous sulfate 325 mg (65 mg iron) tablet 2020-03 00:00: 00 Yes [id number] 325mg Take 1 tablet by mouth 2 (two) times daily. [facility] ibuprofen 600 mg tablet 2020-03 00:00: 00 Yes [id number] 600mg Take 1 tablet by mouth every 6 (six) hours as needed (Pain). Take with food or milk. [facility] vitamin w/FA tablet 2020-03 00:00: 00 Yes [id number] 1{tbl} Take 1 tablet by mouth daily. [facility] docusate calcium 240 mg capsule 2020-03 00:00: 00 Yes [id number] 240mg Take 1 capsule by mouth once daily as needed for Constipati on. [facility] ferrous sulfate 325 mg (65 mg iron) tablet 2020-03 00:00: 00 Yes [id number] 325mg Take 1 tablet by mouth 2 (two) times daily. [facility] ibuprofen 600 mg tablet 2020-03 00:00: 00 Yes [id number] 600mg Take 1 tablet by mouth every 6 (six) hours as needed (Pain). Take with food or milk. [facility] vitamin w/FA tablet 2020-03 00:00: 00 Yes [id number] 1{tbl} Take 1 tablet by mouth daily. [facility] docusate calcium 240 mg capsule 2020-03 00:00: 00 Yes [id number] 240mg Take 1 capsule by mouth once daily as needed for Constipati on. [facility] ferrous sulfate 325 mg (65 mg iron) tablet 2020-03 00:00: 00 Yes [id number] 325mg Take 1 tablet by mouth 2 (two) times daily. [facility] ibuprofen 600 mg tablet 2020-03 00:00: 00 Yes [id number] 600mg Take 1 tablet by mouth every 6 (six) hours as needed (Pain). Take with food or milk. [facility] vitamin w/FA tablet 2020-03 00:00: 00 Yes [id number] 1{tbl} Take 1 tablet by mouth daily. [facility] docusate calcium 240 mg capsule 2020-03 00:00: 00 Yes [id number] 240mg Take 1 capsule by mouth once daily as needed for Constipati on. [facility] ferrous sulfate 325 mg (65 mg iron) tablet 2020-03 00:00: 00 Yes [id number] 325mg Take 1 tablet by mouth 2 (two) times daily. [facility] ibuprofen 600 mg tablet 2020-03 00:00: 00 Yes [id number] 600mg Take 1 tablet by mouth every 6 (six) hours as needed (Pain). Take with food or milk. [facility] acetaminoph en 325 mg tablet 2020-03 00:00: 00 02-02 05:59 :00 No [id number] 650mg Take 2 tablets by mouth every 6 (six) hours as needed for Pain (scale 1-3). [facility] acetaminoph en 325 mg tablet 2020-03 00:00: 00 02-02 05:59 :00 No [id number] 650mg Take 2 tablets by mouth every 6 (six) hours as needed for Pain (scale 1-3). [facility] acetaminoph en 325 mg tablet 2020-03 00:00: 00 02-02 05:59 :00 No [id number] 650mg Take 2 tablets by mouth every 6 (six) hours as needed for Pain (scale 1-3). [facility] acetaminoph en 325 mg tablet 2020-03 00:00: 00 02-02 05:59 :00 No [id number] 650mg Take 2 tablets by mouth every 6 (six) hours as needed for Pain (scale 1-3). [facility] HYDROcodone -acetaminop hen 5-325 mg tablet 2020-03 00:00: 00 02-09 05:59 :00 No [id number] 1{tbl} Take 1 tablet by mouth every 6 (six) hours as needed for Pain (scale 7-10) for up to 7 days. Indication s: acute pain [facility] HYDROcodone -acetaminop hen 5-325 mg tablet 2020-03 00:00: 00 02-09 05:59 :00 No [id number] 1{tbl} Take 1 tablet by mouth every 6 (six) hours as needed for Pain (scale 7-10) for up to 7 days. Indication s: acute pain [facility] rho(D) immune globulin (RHOGAM) syringe 300 mcg 2020-03 18:21: 23 Yes 300ug 300 mcg, Intramuscu lar, ONCE, For 1 dose, Conditiona l, Routine [facility] rho(D) immune globulin (RHOGAM) syringe 300 mcg 2020-03 18:21: 23 02-01 23:01 :07 No 300ug 300 mcg, Intramuscu lar, ONCE, For 1 dose, Conditiona l, [facility] (GAS RELIEF (SIMETHICON E)) 40 mg/0.6 mL drops 40 mg 2020-03 18:21: 20 Yes 40mg 40 mg, Oral, Q3HPRN, Starting on 01/31/21 at 1321, Until Discontinu ed, Routine, Indigestio n [facility] simethicone (GAS RELIEF (SIMETHICON E)) 40 mg/0.6 mL drops 40 mg 2020-03 18:21: 20 02-01 23:01 :07 No 40mg 40 mg, Oral, Q3HPRN, Starting on 01/31/21 at 1321, Until 02/01/21 at 1701, Routine, Indigestio n [facility] HYDROcodone -acetaminop hen (NORCO 5) 5-325 mg tablet 1 tablet 2020-03 18:21: 19 Yes 1{tbl} 1 tablet, Oral, Q6HPRN, Starting on 01/31/21 at 1321, Until Discontinu ed, Routine, Pain (scale 7-10) [facility] diphenhydrA MINE (BENADRYL) tablet 25 mg 2020-03 18:21: 19 Yes 25mg 25 mg, Oral, Q6HPRN, Starting on 01/31/21 at 1321, Until Discontinu ed, Routine, Sleep, Itching [facility] diphenhydrA MINE-0.9 % sod.chlr (BENADRYL) 25 mg/50 mL piggyback 25 mg 2020-03 18:21: 19 Yes 25mg 25 mg, IV Piggyback, Administer over 30 Minutes, Q6HPRN, Starting on 01/31/21 at 1321, Until Discontinu ed, Routine, Itching [facility] ondansetron (ZOFRAN (PF)) injection 4 mg 2020-03 18:21: 19 Yes 4mg 4 mg, Slow IV Push, Q8HPRN, Starting on 01/31/21 at 1321, Until Discontinu ed, Routine, Nausea and Vomiting (N/V) [facility] docusate calcium (SURFAK) capsule 240 mg 2020-03 18:21: 19 Yes 240mg 240 mg, Oral, QDAILYPRN, Starting on 01/31/21 at 1321, Until Discontinu ed, Routine, Constipati on [facility] magnesium hydroxide (MILK OF MAGNESIA) 400 mg/5 mL suspension 30 mL 2020-03 18:21: 19 Yes 30mL 30 mL, Oral, QDAILYPRN, Starting on 01/31/21 at 1321, Until Discontinu ed, Routine, Constipati on [facility] benzocaine- menthol (DERMOPLAST ) 20-0.5 % topical spray 2020-03 18:21: 19 Yes Topical, PRN, Starting on 01/31/21 at 1321, Until Discontinu ed, Routine, Perineum discomfort [facility] HYDROcodone -acetaminop hen (NORCO 5) 5-325 mg tablet 1 tablet 2020-03 18:21: 19 02-01 23:01 :07 No 1{tbl} 1 tablet, Oral, Q6HPRN, Starting on 01/31/21 at 1321, Until 02/01/21 at 1701, Routine, Pain (scale 7-10) [facility] diphenhydrA MINE (BENADRYL) tablet 25 mg 2020-03 18:21: 19 02-01 23:01 :07 No 25mg 25 mg, Oral, Q6HPRN, Starting on 01/31/21 at 1321, Until 02/01/21 at 1701, Routine, Sleep, Itching [facility] diphenhydrA MINE-0.9 % sod.chlr (BENADRYL) 25 mg/50 mL piggyback 25 mg 2020-03 18:21: 19 02-01 23:01 :07 No 25mg 25 mg, IV Piggyback, Administer over 30 Minutes, Q6HPRN, Starting on 01/31/21 at 1321, Until 02/01/21 at 1701, Routine, Itching [facility] ondansetron (ZOFRAN (PF)) injection 4 mg 2020-03 18:21: 19 02-01 23:01 :07 No 4mg 4 mg, Slow IV Push, Q8HPRN, Starting on 01/31/21 at 1321, Until 02/01/21 at 1701, Routine, Nausea and Vomiting (N/V) [facility] docusate calcium (SURFAK) capsule 240 mg 2020-03 18:21: 19 02-01 23:01 :07 No 240mg 240 mg, Oral, QDAILYPRN, Starting on 01/31/21 at 1321, Until 02/01/21 at 1701, Routine, Constipati on [facility] magnesium hydroxide (MILK OF MAGNESIA) 400 mg/5 mL suspension 30 mL 2020-03 18:21: 19 02-01 23:01 :07 No 30mL 30 mL, Oral, QDAILYPRN, Starting on 01/31/21 at 1321, Until 02/01/21 at 1701, Routine, Constipati on [facility] benzocaine- menthol (DERMOPLAST ) 20-0.5 % topical spray 2020-03 18:21: 19 02-01 23:01 :07 No Topical, PRN, Starting on 01/31/21 at 1321, Until 02/01/21 at 1701, Routine, Perineum discomfort [facility] bupivacaine (preserv free) (SENSORCAIN E MPF) 0.25 % (2.5 mg/mL) injection 2020-03 16:01: 00 Yes PRN, Starting on 01/31/21 at 1101, Until Discontinu ed, Routine, Intra-op [facility] bupivacaine (preserv free) (SENSORCAIN E MPF) 0.25 % (2.5 mg/mL) injection 2020-03 16:01: 00 02-01 23:01 :07 No PRN, Starting on 01/31/21 at 1101, Until 02/01/21 at 1701, Routine, Intra-op [facility] acetaminoph en (TYLENOL) tablet 650 mg 2020-03 08:53: 23 Yes 650mg 650 mg, Oral, Q6HPRN, Starting on 01/31/21 at 0353, Until Discontinu ed, Routine, Pain (scale 1-3) [facility] acetaminoph en (TYLENOL) tablet 650 mg 2020-03 08:53: 23 02-01 23:01 :07 No 650mg 650 mg, Oral, Q6HPRN, Starting on 01/31/21 at 0353, Until 02/01/21 at 1701, Routine, Pain (scale 1-3) [facility] ibuprofen (IBU) tablet 600 mg 2020-03 08:52: 56 Yes 600mg 600 mg, Oral, Q6HPRN, Starting on 01/31/21 at 0352, Until Discontinu ed, Routine, Pain (scale 4-6) [facility] ibuprofen (IBU) tablet 600 mg 2020-03 08:52: 56 02-01 23:01 :07 No 600mg 600 mg, Oral, Q6HPRN, Starting on 01/31/21 at 0352, Until 02/01/21 at 1701, Routine, Pain (scale 4-6) [facility] LR 1000 mL + oxytocin 20 units IV Solution 2020-03 07:45: 00 01-31 09:21 :00 No 999mL/h 999 mL/hr, IV Infusion, ONCE, On 01/31/21 at 0245, For 1 dose
In fuse 999 mL /hr & nbsp;over 30 minutes and then decrease rate to 125 mL/hr for the remainder.
[facility] LR 1000 mL + oxytocin 20 units IV Solution 2020-03 21:13: 49 01-31 18:21 :24 No 2mU/min at 6-120 mL/hr, IV Infusion, TITRATE, Starting on Tue01/30/21 at 1613, Until 01/31/21 at 1321, IDA [facility] fentaNYL 2 mcg/mL + bupivacaine 0.1% in NS 250 mL epidural bag 2020-03 18:56: 00 01-31 14:30 :34 No Intra-op [facility] lidocaine-e pinephrine (XYLOCAINE W/EPINEPHRI NE) 1.5 %-1:200,000 injection 2020-03 18:56: 00 01-31 14:30 :34 No Epidural, ONCE INTRA PROCEDURE, Starting on Tue01/30/21 at 1356, Until Discontinu ed, Routine, Intra-op [facility] FENTanyl PF (SUBLIMAZE (PF)) injection 2020-03 18:55: 00 01-31 14:30 :34 No Intratheca l, ONCE INTRA PROCEDURE, Starting on Tue01/30/21 at 1355, Until Discontinu ed, Routine, Intra-op [facility] morpHINE PF (DURAMORPH- PF) injection 2020-03 18:55: 00 01-31 14:30 :34 No Intratheca l, ONCE INTRA PROCEDURE, Starting on Tue01/30/21 at 1355, Until Discontinu ed, Routine, Intra-op [facility] lactated ringers IV infusion 500 mL 2020-03 18:30: 00 01-30 17:53 :00 No 500mL at 999 mL/hr, 500 mL, IV Infusion, ONCE, 1 dose, On Tue01/30/21 at 1330, Routine [facility] sodium citrate-cit bri acid (BICITRA) 500-334 mg/5 mL solution 30 mL 2020-03 17:29: 29 01-30 18:29 :00 No 30mL 30 mL, Oral, PRE-PROCED URE ONCE, 1 dose, Starting on Tue01/30/21 at 1229, Until Tue01/30/21 at 1329, Routine, Surgery/Pr ocedure [facility] LR 1000 mL + oxytocin 20 units IV Solution 2020-03 17:15: 00 01-31 18:21 :24 No 2mU/min at 6-120 mL/hr, IV Infusion, CONTINUOUS , Starting on Tue01/30/21 at 1215, Until 01/31/21 at 1321, IDA [facility] D5W-LR IV infusion 1,000 mL 2020-03 13:15: 00 01-31 18:21 :24 No 1000mL at 125 mL/hr, IV Infusion, CONTINUOUS , Starting on Tue01/30/21 at 0815, Until 01/31/21 at 1321, Routine [facility] sodium citrate-cit bri acid (BICITRA) 500-334 mg/5 mL solution 30 mL 2020-03 13:07: 01 01-31 12:00 :00 No 30mL 30 mL, Oral, PRE-PROCED URE ONCE, 1 dose, Starting on Tue01/30/21 at 0807, Until Discontinu ed, Routine, Surgery/Pr ocedure [facility] lactated ringers IV infusion 500 mL 2020-03 13:07: 01 01-31 18:21 :24 No 500mL at 999 mL/hr, 500 mL, IV Infusion, PRN - SEE INSTRUCTIO NS, Starting on Tue01/30/21 at 0807, Until 01/31/21 at 1321, Routine [facility] ferrous sulfate 325 mg (65 mg iron) tablet 10-29 00:00: 00 Yes [id number] 325mg Take 1 tablet by mouth 2 (two) times daily. [facility] ascorbic acid, vitamin C, 500 mg tablet 10-29 00:00: 00 Yes [id number] 500mg Take 1 tablet by mouth 3 (three) times daily. [facility] proMETHazin e 25 mg tablet 09-16 00:00: 00 Yes [id number] 25mg Take 1 tablet by mouth every 4 (four) hours as needed for Nausea and Vomiting (N/V). [facility] proMETHazin e 25 mg tablet 09-16 00:00: 00 02-01 00:00 :00 No [id number] 25mg Take 1 tablet by mouth every 4 (four) hours as needed for Nausea and Vomiting (N/V). [facility] proMETHazin e 25 mg tablet 09-16 00:00: 00 02-01 00:00 :00 No [id number] 25mg Take 1 tablet by mouth every 4 (four) hours as needed for Nausea and Vomiting (N/V). [facility] vit 33-iron-fol ic-dha (SELECT-OB + DHA) 29 mg iron-1 mg -250 mg combo pack 08-18 00:00: 00 Yes [id number] 1{packe t} Take 1 Packet by mouth daily. [facility] vit 33-iron-fol ic-dha (SELECT-OB + DHA) 29 mg iron-1 mg -250 mg combo pack 08-18 00:00: 00 02-01 00:00 :00 No [id number] 1{packe t} Take 1 Packet by mouth daily. [facility] vit 33-iron-fol ic-dha (SELECT-OB + DHA) 29 mg iron-1 mg -250 mg combo pack 08-18 00:00: 00 02-01 00:00 :00 No [id number] 1{packe t} Take 1 Packet by mouth daily. [facility] Vital Signs Vital Name Observation Time Observation Value Comments S ource Heart rate 2022-03-10 00:10:00 124 /min [facility] Body temperature 2022-03-10 00:10:00 37.33 Jolanta [facility] Respiratory rate 2022-03-10 00:10:00 17 /min [facility] Body height 2022-03-10 00:10:00 160 cm [facility] Body weight 2022-03-10 00:10:00 79.198 kg [facility] BMI 2022-03-10 00:10:00 30.93 kg/m2 [facility] Oxygen saturation in Arterial blood by Pulse oximetry 2022-03-10 00:10:00 97 /min [facility] Systolic blood pressure 2022-03-10 00:10:00 124 mm[Hg] [facility] Diastolic blood pressure 2022-03-10 00:10:00 85 mm[Hg] [facility] Systolic blood pressure 2021-06-17 22:51:00 110 mm[Hg] [facility] Diastolic blood pressure 2021-06-17 22:51:00 73 mm[Hg] [facility] Heart rate 2021-06-17 22:51:00 76 /min [facility] Body temperature 2021-06-17 22:51:00 37.11 [facility] Respiratory rate 2021-06-17 22:51:00 16 /min [facility] Body height 2021-06-17 22:51:00 157.5 cm [facility] Body weight 2021-06-17 22:51:00 75.978 kg [facility] BMI 2021-06-17 22:51:00 30.64 kg/m2 [facility] Oxygen saturation in Arterial blood by Pulse oximetry 2021-06-17 22:51:00 99 /min [facility] Systolic blood pressure 2021-02-01 13:36:00 98 mm[Hg] [facility] Diastolic blood pressure 2021-02-01 13:36:00 69 mm[Hg] [facility] Heart rate 2021-02-01 13:36:00 101 /min [facility] Body temperature 2021-02-01 13:36:00 36.33 Jolanta [facility] Respiratory rate 2021-02-01 13:36:00 18 /min [facility] Oxygen saturation in Arterial blood by Pulse oximetry 2021-02-01 13:36:00 98 /min [facility] Body height 2021-01-30 13:05:00 160 cm [facility] Body weight 2021-01-30 13:05:00 78.472 kg [facility] BMI 2021-01-30 13:05:00 30.65 kg/m2 [facility] Systolic blood pressure 2021-01-31 12:30:00 104 mm[Hg] [facility] Diastolic blood pressure 2021-01-31 12:30:00 48 mm[Hg] [facility] Heart rate 2021-01-31 12:30:00 86 /min [facility] Oxygen saturation in Arterial blood by Pulse oximetry 2021-01-31 12:30:00 100 /min [facility] Body temperature 2021-01-31 12:00:00 36.61 Jolanta [facility] Respiratory rate 2021-01-31 10:45:00 16 /min [facility] Body height 2021-01-30 13:05:00 160 cm [facility] Body weight 2021-01-30 13:05:00 78.472 kg [facility] BMI 2021-01-30 13:05:00 30.65 kg/m2 [facility] Procedures Procedure Date / Time Performed Performing Clinicia n Source ASSIGNMENT OF BENEFITS 2022-03-10 00:05:22 Docto r Unassigned, [place] [facility] CBC WITH DIFF 2021-02-01 08:34:[facility] 2021-02-01 08:34:00 [facility] 2021-01-31 15:02:00 [facility] CENTRAL NEURAXIAL BLOCK 2021-01-30 19:19:07 Audrey Mclaughlin [facility] HEPATITIS B SURFACE ANTIGEN 2021-01-30 13:30:00 Yajaira [facility] GALV ONLY - SYPHILIS IGG/IGM 2021-01-30 13:30:00 Yajaira [facility] HEPATITIS B SURFACE ANTIGEN 2021-01-30 13:30:00 Yajaira [facility] GALV ONLY - SYPHILIS IGG/IGM 2021-01-30 13:30:00 Yajaira [facility] HB ABO GROUPING 2021-01-30 [facility]:19[facility] 2021-01-30 13:19:00 Kimberly Allenh [facility] HB ABO GROUPING 2021-01-30 13:19:00 Liya Gates [facility] RHO (D) IMMUNE GLOBULIN 2021-01-30 13:19:00 Orquidea Allen [facility] COVID-19 (ID NOW RAPID TESTING) 2021-01-30 13:14:00 Darline Rivera [facility] COVID-19 (ID NOW RAPID TESTING) 2021-01-30 13:14:00 Darline Rivera [facility] HOSPITAL ADMISSION 2021-01-30 05:01:00 Doctor Un assigned, [place] [facility] L&D VISIT (NON-DELIVERED) 2020-10-23 05:01:00 Doctor Unassigned, [place] [facility] L&D VISIT (NON-DELIVERED) 2020-10-23 05:01:00 Doctor Unassigned, [place] [facility] Encounters Start Date/Time End Date/Time Encounter Type Admission Type Attending [facility] Care Department Encounter ID Source 2022-12-14 13:37:02 Outpatient [facility] [id number] [facility] 2022-12-10 15:19:03 Outpatient [facility] [id number] [facility] 2022-12-09 12:41:02 Outpatient [facility] [id number] [facility] ty [facility] 2022-11-30 15:35:04 Outpatient [facility] [id number] [facility] 2022-11-26 15:35:02 Outpatient [facility] [id number] [facility] 2022-11-16 08:11:02 Outpatient [facility] [id number] [facility] 2021-01-26 11:53:38 Emergency [facility] [id number] [facility] 2022-03-09 18:00:00 2022-03-09 19:05:16 Outpatient TG BUTLER [facility] [id number] [facility] 2022-03-09 18:00:00 2022-03-09 18:20:00 Urgent Care JohnathanTg Unknown, Attending [facility] BU[facility] 1..840.114 350.1.13.10 4.2.7.2.686 [id number] [facility] 2022-03-09 00:00:00 2022-03-09 00:00:00 Orders Only Doctor Unassigned, [place] [facility] 1.840.114 350.1.13.10 4.2.7.2.686 [id number] [facility] 2021-06-17 18:00:00 2021-06-17 18:21:12 Outpatient R TG MANN [facility] [id number] [facility] 2021-06-17 18:00:00 2021-06-17 18:21:12 Urgent Care Tg Mann, Sofia [facility] MEDICAL OFFICE BUILD[facility] 1..840.114 350.1.13.10 4.2.7.2.686 [id number] [facility] 2021-03-27 10:30:00 2021-03-27 10:30:00 Outpatient R [facility] [id number] [facility] 2021-03-11 12:45:00 2021-03-11 12:45:00 Outpatient R VIVIEN SO [facility] [id number] [facility] 2021-01-30 07:31:00 2021-02-01 14:55:00 [facility] [id number] [facility] 2021-01-30 07:31:00 2021-02-01 14:55:00 Hospital Encounter Darline Rivera [facility] 1.840.114 350.1.13.10 4.2.7.2.686 [id number] [facility] 2021-01-31 08:20:00 2021-01-31 09:47:00 Surgery Kareem Stephens [facility] 1.2840.114 350.1.13.10 4.2.7.2.686 [id number] [facility] 2021-01-30 12:32:00 2021-01-31 09:30:00 Anesthesia Event [facility]issette [facility]rel [facility] 1.2840.114 350.1.13.10 4.2.7.2.686 [id number] [facility] 2021-01-30 07:31:00 2021-01-30 07:31:00 Inpatient X DARLINE RIVERA [facility] VINOD [id number] [facility] 2021-01-30 00:00:00 2021-01-30 00:00:00 Orders Only Doctor Unassigned, [place] [facility] 1..840.114 350.1.13.10 4.2.7.2.686 [id number] [facility] 2021-01-28 15:15:00 2021-01-28 15:03:46 Outpatient R VIVIEN SO [facility] [id number] [facility] 2021-01-28 14:28:20 2021-01-28 15:03:46 Routine Visit Vivien So [facility] [employer]NA[employer] DIRECTOR [facility] CHILD [facility] 1..840.114 350.1.13.10 4.2.7.2.686 [id number] [facility] 2021-01-23 11:00:00 2021-01-23 11:00:00 Outpatient BAILEY CORTEZ [facility] [id number] [facility] 2021-01-15 00:00:00 2021-01-15 00:00:00 Telephone Vivien So [facility] [employer] DIRECTOR [facility] CHILD [facility] 1.2.840.114 350.1.13.10 4.2.7.2.686 [id number] [facility] 2021-01-14 13:01:26 2021-01-14 13:41:24 Routine Visit Vivien So [facility] [employer] DIRECTOR [facility] MATERNAL & CHILD [facility] 1.2.840.114 350.1.13.10 4.2.7.2.686 [id number] [facility] 2021-01-14 13:15:00 2021-01-14 13:15:00 Outpatient R VIVIEN SO [facility] [id number] [facility] 2021-01-08 11:00:00 2021-01-08 11:00:00 Outpatient R VIVIEN SO [facility] [id number] [facility] 2020-12-26 13:35:16 2020-12-26 14:12:18 Routine Visit Vivien So [facility] [employer] DIRECTOR [facility]ILD [facility] 1.2840.114 350.1.13.10 4.2.7.2.686 [id number] [facility] 2020-12-26 13:30:00 2020-12-26 13:30:00 Outpatient R VIVIEN SO [facility] [id number] [facility] 2020-12-25 00:00:00 2020-12-25 00:00:00 Nurse Triage Deanne Bauer [facility] 1.2840.114 350.1.13.10 4.2.7.2.686 [id number] [facility] 2020-12-12 15:26:18 2020-12-12 16:10:36 Routine Visit Marisol Louis [facility] [employer] DIRECTOR [facility] MATERNAL & CHILD [facility] 1.2.840.114 350.1.13.10 4.2.7.2.686 [id number] [facility] 2020-12-12 15:30:00 2020-12-12 15:30:00 Outpatient R MARISOL LOUIS [facility] [id number] [facility] 2020-12-12 00:00:00 2020-12-12 00:00:00 Orders Only Doctor Unassigned, [place] [facility] 1.2840.114 350.1.13.10 4.2.7.2.686 [id number] [facility] 2020-11-18 13:00:00 2020-11-18 13:00:00 Outpatient R VIVIEN SO [facility] [id number] [facility] 2020-10-29 00:00:00 2020-10-29 00:00:00 Telephone Vivien So [facility] [employer] DIRECTOR [facility] MATERNAL & CHILD [facility] 1.840.114 350.1.13.10 4.2.7.2.686 [id number] [facility] 2020-10-29 00:00:00 2020-10-29 00:00:00 Abstract José Matta [facility] [employer] DIRECTOR [facility] CHILD [facility] 1.20.114 350.1.13.10 4.2.7.2.686 [id number] [facility] 2020-10-28 14:56:53 2020-10-28 15:41:53 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, [facility] Vivien So Hassan M [facility] [employer]NA[employer] DIRECTOR [facility] CHILD [facility] 1.2840.114 350.1.13.10 4.2.7.2.686 [id number] [facility] 2020-10-28 12:54:43 2020-10-28 13:19:08 Routine Visit Vivien So [facility] [employer] DIRECTOR [facility] CHILD [facility] 1.2840.114 350.1.13.10 4.2.7.2.686 [id number] [facility] 2020-10-28 13:00:00 2020-10-28 13:00:00 Outpatient R VIVIEN SO [facility] [id number] [facility] 2020-10-23 20:57:00 2020-10-23 22:06:00 Emergency Fish, [facility] 1.2840.114 350.1.13.10 4.2.7.2.686 [id number] [facility] 2020-10-23 00:00:00 2020-10-23 00:00:00 Nurse Triage Veronika Valenzuela [facility] 1.284.114 350.1.13.10 4.2.7.2.686 [id number] [facility] 2020-10-14 14:41:57 2020-10-14 15:13:22 Routine Visit Vivien So [facility] [employer] DIRECTOR [facility] MATERNAL & CHILD [facility] 1.840.114 350.1.13.10 4.2.7.2.686 [id number] [facility] 2020-10-14 15:00:00 2020-10-14 15:00:00 Outpatient VIVIEN HARRIS [facility] [id number] [facility] 2020 10:44:32 2020 11:59:32 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, Gloria Blankenship [facility] [employer]NA[employer] DIRECTOR [facility] MATERNAL & CHILD [facility] 1.840.114 350.1.13.10 4.2.7.2.686 [id number] [facility] 2020 10:45:00 2020 10:45:00 Outpatient P [facility] [id number] [facility] 2020 00:00:00 2020 00:00:00 Abstract José Matta [facility] [employer] DIRECTOR [facility] MATERNAL & CHILD [facility] 1.2.840.114 350.1.13.10 4.2.7.2.686 [id number] [facility] 2020-09-16 08:54:33 2020-09-16 09:18:57 Routine Visit Vivien So [facility] [employer]NA[employer] DIRECTOR [facility]ILD [facility] 1.2.840.114 350.1.13.10 4.2.7.2.686 [id number] [facility] 2020-09-16 09:00:00 2020-09-16 09:00:00 Outpatient R VIVIEN SO [facility] [id number] [facility] 2020-08-21 00:00:00 2020-08-21 00:00:00 Telephone MattaJosé [facility] MANAGEMENT [employer]S DIRECTOR [facility]ILD [facility] 1.2.840.114 350.1.13.10 4.2.7.2.686 [id number] [facility] 2020-08-18 10:48:22 2020-08-18 11:23:28 Routine Visit MattaJosé [facility] MANA[employer] DIRECTOR [facility]ILD [facility] 1.2.840.114 350.1.13.10 4.2.7.2.686 [id number] [facility] 2020-08-18 10:45:00 2020-08-18 10:45:00 Outpatient R MATTAJOSÉ [facility] [id number] [facility] 2020-08-14 00:00:00 2020-08-14 00:00:00 Telephone MattaJosé [facility] MANAGEMENT [employer]S DIRECTOR [facility]ILD [facility] 1.2.840.114 350.1.13.10 4.2.7.2.686 [id number] [facility] 2020-07-01 13:15:00 2020-07-01 13:15:00 Outpatient R VIVIEN SO [facility] [id number] [facility] 2020-06-06 00:00:00 2020-06-06 00:00:00 Telephone KishanVivien India [facility] MANA[employer] DIRECTOR [facility]ILD [facility] 1.2.840.114 350.1.13.10 4.2.7.2.686 [id number] [facility] 2020-06-03 14:40:32 2020-06-03 15:22:31 Initial Visit Vivien So [facility] [employer] [facility] 1.2840.114 350.1.13.10 4.2.7.2.686 [id number] [facility] 2020-06-03 14:30:00 2020-06-03 14:30:00 Outpatient R VIVIEN SO [facility] [id number] [facility] 2020-06-03 00:00:00 2020-06-03 00:00:00 Orders Only Doctor Unassigned, [place] [facility] 1.2840.114 350.1.13.10 4.2.7.2.686 [id number] [facility] 2018-11-20 10:57:07 2018-11-20 11:37:13 Routine Visit José Matta [facility] MANA[employer] DIRECTOR [facility] MATERNAL & CHILD [facility] 1.20.114 350.1.13.10 4.2.7.2.686 [id number] [facility] 2018-10-31 13:06:56 2018-10-31 14:11:23 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, Liliane Joseph [facility] MANA[employer] DIRECTOR [facility] MATERNAL & CHILD [facility] 1.2840.114 350.1.13.10 4.2.7.2.686 [id number] [facility] 2018-10-27 13:04:22 2018-10-27 13:21:00 Handmade Tile Artist Visit Lab, [facility] Vivien So [facility] MANAG[employer] DIRECTOR [facility]ERNAL [facility] 1.2.840.114 350.1.13.10 4.2.7.2.686 [id number] [facility] Results Test Description Test Time Test Comments Results Result Co mments Source [facility] with [id number] 11:45:00* Test Item Value Reference Range Interpretation Comme nts WBC (test code = 6690-2) See_Comment H [Automated messa ge] The system which generated this result transmitted reference range: 4.30 - 11.10 10*3/?L. The reference range was not used to interpret this result as normal/abnormal. RBC (test code = 789-8) See_Comment L [Automated messa ge] The system which generated this result transmitted reference range: 3.93 - 5.25 10*6/?L. The reference range was not used to interpret this result as normal/abnormal. HGB (test code = 718-7) 7.6 g/dL 11.6-15.0 L HCT (test code = 4544-3) 25.5 % 35.7-45.2 L MCV (test code = 787-2) 78.7 fL 80.6-95.5 L MCH (test code = 785-6) 23.5 pg 25.9-32.8 L MCHC (test code = 786-4) 29.8 g/dL 31.6-35.1 L RDW-SD (test code = 12218-4) 43.8 fL 39.0-49.9 RDW-CV (test code = 788-0) 15.4 % 12.0-15.5 PLT (test code = 777-3) See_Comment [Automated messa ge] The system which generated this result transmitted reference range: 166 - 358 10*3/?L. The reference range was not used to interpret this result as normal/abnormal. MPV (test code = 76117-7) 9.7 fL 9.5-12.9 NRBC/100 WBC (test code = 2877869947) See_Comment [Automated me ssage] The system which generated this result transmitted reference range: 0.0 - 10.0 /100 WBCs. The reference range was not used to interpret this result as normal/abnormal. NRBC x10^3 (test code = 6215841265) <0.01 See_Comment [Automated messa ge] The system which generated this result transmitted reference range: 10*3/?L. The reference range was not used to interpret this result as normal/abnormal. GRAN MAT (NEUT) % (test code = 770-8) 69.9 % IMM GRAN % (test code = 0531243047) 0.80 % LYMPH % (test code = 736-9) 21.9 % MONO % (test code = 5905-5) 6.3 % EOS % (test code = 713-8) 0.9 % BASO % (test code = 706-2) 0.2 % GRAN MAT x10^3(ANC) (test code = 9930195829) 9.29 10*3/uL 1.88-7.09 H IMM GRAN x10^3 (test code = 9941460577) 0.11 10*3/uL 0.00-0.06 H LYMPH x10^3 (test code = 731-0) 2.91 10*3/uL 1.32-3.29 MONO x10^3 (test code = 742-7) 0.84 10*3/uL 0.33-0.92 EOS x10^3 (test code = 711-2) 0.12 10*3/uL 0.03-0.39 BASO x10^3 (test code = 704-7) 0.03 10*3/uL 0.01-0.07 Lab Interpretation (test code = 71314-3) [facility]normal [facility] I[facility]UNE [id number] 18:34:32* Test Item Value Reference Range Interpretation Comme nts RHIG CANDIDATE? (test code = 5055) No- see comment Patient is not a candidate for RhIg- Patient is Rh Positive.Performed at [facility] Laboratory Services - [facility] Blood [address] [address]Jdqf Free: [phone] No. [id number] [facility] IMMUNE [id number] 18:34:32* Test Item Value Reference Range Interpretation Comme nts RHIG CANDIDATE? (test code = 5055) No- see comment Patient is not a candidate for RhIg- Patient is Rh Positive.Performed at [facility] Laboratory Services - [facility] Blood [address] [address]Jiet Free: [phone] No. [id number] [facility] ONLY - SYPHILIS [id number]/[id number] 17:30:45* Test Item Value Reference Range Interpretation Comme nts Syphilis IgG/IgM (test code = 23339-0) Non-reactive Non-reactive TERRIE (test code = TERRIE) Non-reactive - No serologic evidence of T. pallidum infection. Cannot exclude incubating or early syphilis. Submit a second specimen in 2-4 weeks if syphilis is clinically suspected. Equivocal - Further testing to follow. Reactive - Further testing to follow. Lab Interpretation (test code = 13326-3) Normal [facility] ONLY - [place]PHIL[place] IGG/[id number] 17:30:45* Test Item Value Reference Range Interpretation Comme nts Syphilis IgG/IgM (test code = 58566-1) Non-reactive Non-reactive TERRIE (test code = TERRIE) Non-reactive - No serologic evidence of T. pallidum infection. Cannot exclude incubating or early syphilis. Submit a second specimen in 2-4 weeks if syphilis is clinically suspected. Equivocal - Further testing to follow. Reactive - Further testing to follow. Lab Interpretation (test code = 75159-0) Normal [facility] Surface [id number] 14:58:42 * Test Item Value Reference Range Interpretation Comme nts HBsAg Semi-Quantitative (delvis t code = 5195-3) Negative Negative [facility] Surface [id number] 14:58:42 * Test Item Value Reference Range Interpretation Comme nts HBsAg Semi-Quantitative (delvis t code = 5195-3) Negative Negative [facility] Screen - ONCE [id number] 14:15:48 * Test Item Value Reference Range Interpretation Comme nts ABO & RH (test code = 20) O POSITIVE Performed at [facility] B Laboratory Services - [facility] Blood [address] [address]Gdgu Free: [phone] No. [id number] IAT (test code = 1185) Negative Performed at [facility] Laboratory Services - [address] [address]Twyl Free: [phone] No. [id number] [facility] Screen - ONCE [id number] 14:15:48 * Test Item Value Reference Range Interpretation Comme nts ABO & RH (test code = 20) O POSITIVE Performed at [facility] Laboratory Services - [facility] Blood [address] [address]Hcmq Free: [phone] No. [id number] IAT (test code = 1185) Negative Performed at [facility] Laboratory Services - [address] [address]Sdnf Free: [phone] No. [id number] [facility]
[2023-03-02] MEDS ORDERED: DIPHENHYDRAMINE 50 MG/ML VIAL ONE (23:36)
[2023-03-02] MEDS ORDERED: METOCLOPRAMIDE 10 MG/2mL INJ ONE (23:36)
[2023-03-02] MEDS ORDERED: KETOROLAC 30 MG/ML INJ ONE (23:37)
[2023-03-02] MEDS ORDERED: NA CHLORIDE 0.9% 1,000 ML ONE (23:37)
[2023-03-03 01:24] LABS: SARS-COV-2 RT PCR NEGATIVE (NEGATIVE)
--- NOTE | 2023-03-03 02:07 | ER ---
Nurse's Notes [facility] Name: Leni Kaufman Age: 27 yrs Sex: Female : 1995 Arrival Date: 03/02/2023 Time: 22:59 Bed 7 Private MD: Diagnosis: Other specified viral diseases;Migraine without aura, intractable;Influenza B, acute systemic viral illness Presentation: 03/02 23:06 Chief complaint: Patient states: fever cough congestion migraine x 5 days medicated kl with allergy med x 2 hours prior. Coronavirus screen: Vaccine status: Patient reports being unvaccinated. Ebola Screen: Patient negative for fever greater than or equal to 101.5 degrees Fahrenheit, and additional compatible Ebola Virus Disease symptoms. Initial Sepsis Screen: Does the patient meet any 2 criteria? No. Patient's initial sepsis screen is negative. Does the patient have a suspected source of infection? No. Patient's initial sepsis screen is negative. Risk Assessment: Do you want to hurt yourself or someone else? Patient reports no desire to harm self or others. 23:06 Method Of Arrival: Ambulatory 23:06 Acuity: CHERI 4 kl 03/03 02:11 Onset of symptoms was February 26, 2023. jj7 Triage Assessment: 03/02 23:12 Headache History: The patient has had previous headaches and this one is similar to previous episodes. General: Appears uncomfortable, Behavior is calm, cooperative. Pain: Complains of pain in HEAD Pain currently is 8 out of 10 on a pain scale. Also complains of photophobia. Neuro: No deficits noted. Historical: - Allergies: 23:11 No Known Allergies; kl - PSHx: 23:11 None; - Immunization history:: Adult Immunizations not immunized. - Social history:: Smoking status: Patient denies any tobacco usage or history of. - Family history:: not pertinent. Screenin:35 [facility] ED Fall Risk Assessment (Adult) History of falling in the last 3 months, jj7 including since admission No falls in past 3 months (0 pts) Confusion or Disorientation No (0 pts) Intoxicated or Sedated No (0 pts) Impaired Gait No (0 pts) Mobility Assist Device Used No (0 pt) Altered Elimination No (0 pt) Score/Fall Risk Level 0 - 2 = Low Risk Oriented to surroundings, Maintained a safe environment, Educated pt \T\ family on fall prevention, incl call for assistance when getting out of bed. Abuse screen: Denies threats or abuse. Nutritional screening: No deficits noted. Tuberculosis screening: No symptoms or risk factors identified. Assessment: 23:35 General: Appears in no apparent distress. uncomfortable, Behavior is calm, cooperative, jj7 appropriate for age. Pain: Complains of pain in head Pain currently is 4 out of 10 on a pain scale. Neuro: Reports headache since for 1 week. 03/03 01:18 Reassessment: No changes from previously documented assessment. Patient and/or family vc1 updated on plan of care and expected duration. Pain level reassessed. Patient is alert/active/playful, equal unlabored respirations, skin warm/dry/pink. Vital Signs: 03/02 23:06 BP 110 / 80; Pulse 133; Resp 16; Temp 99.1(O); Pulse Ox 100% on R/A; Weight 72.57 kg kl (R); Height 5 ft. 6 in. ; Pain 8/10; 03/03 00:15 BP 114 / 75; Pulse 108; Resp 19; Pulse Ox 99% ; jj7 01:18 BP 101 / 66; Pulse 94; Resp 19; Pulse Ox 100% ; vc1 02:09 BP 115 / 76; Pulse 94; Resp 20; Pulse Ox 97% ; Pain 0/10; jj7 03/02 23:06 Body Mass Index 25.82 (72.57 kg, 167.64 cm) 03/02 23:06 Pain Scale: Adult kl 02:09 Pain Scale: Adult jj7 Jennifer Coma Score: 02:05 Eye Response: spontaneous(4). Motor Response: obeys commands(6). Verbal Response: sp4 oriented(5). Total: 15. ED Course: 03/02 23:00 Patient arrived in ED. jj6 23:04 Neftali Ashford MD is Attending Physician. sp4 23:11 Triage completed. kl 23:14 Yoon Richard RN is Primary Nurse. jj7 23:35 Patient has correct armband on for positive identification. Bed in low position. Call jj7 light in reach. Door closed. Lights dimmed. Warm blanket given. 23:35 Arm band placed on right wrist. jj7 23:40 Inserted saline lock: 20 gauge in right antecubital area, using aseptic technique. jj7 Blood collected. 23:47 Test, Urine Sent. jj7 03/03 00:33 COVID-19/FLU A+B Sent. jj7 02:10 No provider procedures requiring assistance completed. IV discontinued, intact, jj7 bleeding controlled, No redness/swelling at site. Pressure dressing applied. Administered Medications: 03/02 23:41 Drug: metoCLOPramide IVP 10 mg IVP once; over 1 to 2 minutes Route: IVP; Site: right [facility] antecubital; 03/03 02:13 Follow up: Response: Marked relief of symptoms jj7 03/02 23:41 Drug: Ketorolac IVP 30 mg IVP once Route: IVP; Site: right antecubital; jj7 03/03 02:13 Follow up: Response: Marked relief of symptoms jj7 03/02 23:41 Drug: diphenhydrAMINE IVP 50 mg IVP once Route: IVP; Site: right antecubital; jj7 03/03 02:12 Follow up: Response: Marked relief of symptoms jj7 03/02 23:41 Drug: NS 0.9% IV 1000 ml IV at 1 bolus Per protocol; 1000 mL bolus Route: IV; Rate: 1 jj7 bolus; Site: right antecubital; 03/03 00:40 Follow up: IV Status: Completed infusion jj7 Medication: 02:11 VIS not applicable for this client. jj7 Outcome: 02:07 Discharge ordered by . sp4 02:10 Discharged to home ambulatory, jj7 02:10 Condition: improved 02:10 Discharge instructions given to patient, Instructed on discharge instructions, medication usage, Demonstrated understanding of instructions, medications, Prescriptions given X 5 02:16 Patient left the ED. jj7 Signatures: Soumya Molina RN RN Eva Wells jj6 Jolanta Vargas RN RN vc1 Yoon Richard RN RN jj7 Neftali Ashford MD MD sp4
--- NOTE | 2023-03-03 02:07 | EDPHYS ---
Physician Documentation [facility] Name: Leni Kaufman Age: 27 yrs Sex: Female : 1995 Arrival Date: 03/02/2023 Time: 22:59 Bed 7 Private MD: ED Physician Neftali Ashford HPI: 03/02 23:04 This 27 yrs old Female presents to ER via Unassigned with complaints of sp4 Headache, Cough, Congestion. 23:11 Patient presents with 5 days of headache, fever, nausea, flulike symptoms. Patient sp4 reports history of migraines. Reports associated cough and congestion. . Historical: - Allergies: 23:11 No Known Allergies; kl - PSHx: 23:11 None; kl - Immunization history:: Adult Immunizations not immunized. - Social history:: Smoking status: Patient denies any tobacco usage or history of. - Family history:: not pertinent. ROS: 23:11 Constitutional: Negative for fever, chills, and weight loss, positive headache, sp4 positive fever, positive cough, positive congestion, positive light sensitivity 23:11 All other systems are negative, Exam: 23:11 Constitutional: This is a well developed, well nourished patient who is awake, alert, sp4 and in no acute distress. Head/Face: Normocephalic, atraumatic. Eyes: Pupils equal round and reactive to light, extra-ocular motions intact. Lids and lashes normal. Conjunctiva and sclera are not injected. Cornea within normal limits. Periorbital areas with no swelling, redness, or edema. ENT: Nares patent. No nasal discharge, no septal abnormalities noted. Tympanic membranes are normal and external auditory canals are clear. Oropharynx with no redness, swelling, or masses, exudates, or evidence of obstruction, uvula midline. Mucous membranes moist. Neck: Trachea midline, no thyromegaly or masses palpated, and no cervical lymphadenopathy. Supple, full range of motion without nuchal rigidity, or vertebral point tenderness. Chest/axilla: Normal chest wall appearance and motion. Nontender with no deformity. No lesions are appreciated. Cardiovascular: Regular rate and rhythm with a normal S1 and S2. No gallops, murmurs, or rubs. Normal PMI, no JVD. No pulse deficits. Respiratory: Lungs have equal breath sounds bilaterally, clear to auscultation and percussion. No rales, rhonchi or wheezes noted. No increased work of breathing, no retractions or nasal flaring. Abdomen/GI: Soft, non-tender, with normal bowel sounds. No distension or tympany. No guarding or rebound. No evidence of tenderness throughout. Back: No spinal tenderness. No costovertebral tenderness. Skin: Warm, dry with normal turgor. Normal color with no rashes, no lesions, and no evidence of cellulitis. MS/ Extremity: Pulses equal, no cyanosis. Neurovascular intact. Full, normal range of motion. Neuro: Awake and alert, GCS 15, oriented to person, place, time, and situation. Cranial nerves II-XII grossly intact. Motor strength 5/5 in all extremities. Sensory grossly intact. Psych: Awake, alert, with orientation to person, place and time. Behavior, mood, and affect are within normal limits Vital Signs: 23:06 BP 110 / 80; Pulse 133; Resp 16; Temp 99.1(O); Pulse Ox 100% on R/A; Weight 72.57 kg kl (R); Height 5 ft. 6 in. ; Pain 8/10; 12/07 00:15 BP 114 / 75; Pulse 108; Resp 19; Pulse Ox 99% ; jj7 01:18 BP 101 / 66; Pulse 94; Resp 19; Pulse Ox 100% ; vc1 02:09 BP 115 / 76; Pulse 94; Resp 20; Pulse Ox 97% ; Pain 0/10; jj7 12 23:06 Body Mass Index 25.82 (72.57 kg, 167.64 cm) 12 23:06 Pain Scale: Adult 02:09 Pain Scale: Adult jj7 [place] Coma Score: 02:05 Eye Response: spontaneous(4). Motor Response: obeys commands(6). Verbal Response: sp4 oriented(5). Total: 15. MDM: 03/02 23:04 Patient medically screened. sp4 03/03 02:05 Differential diagnosis: cluster headache, glaucoma, hypertensive headache, tension sp4 headache, vasomotor headache. Data reviewed: vital signs, nurses notes, lab test result(s), Flu: positive. ED course: Is positive for influenza B, will prescribe Tamiflu, dextromethorphan, ibuprofen, tramadol, Phenergan. 03/02 23:04 Order name: Test, Urine; Complete Time: 00:32 sp4 03/02 23:04 Order name: COVID-19/FLU A+B; Complete Time: 02:01 sp4 03/02 23:10 Order name: Saline Lock; Complete Time: 23:41 sp4 Administered Medications: 03/02 23:41 Drug: metoCLOPramide IVP 10 mg IVP once; over 1 to 2 minutes Route: IVP; Site: [facility]; 03/03 02:13 Follow up: Response: Marked relief of symptoms [facility] 03/02 23:41 Drug: Ketorolac IVP 30 mg IVP once Route: IVP; Site: right antecubital; [facility] 03/03 02:13 Follow up: Response: Marked relief of symptoms [facility] 03/02 23:41 Drug: diphenhydrAMINE IVP 50 mg IVP once Route: IVP; Site: right antecubital; [facility] 03/03 02:12 Follow up: Response: Marked relief of symptoms [facility] 03/02 23:41 Drug: NS 0.9% IV 1000 ml IV at 1 bolus Per protocol; 1000 mL bolus Route: IV; Rate: 1 jj7 bolus; Site: right antecubital; 03/03 00:40 Follow up: IV Status: Completed infusion [facility] Disposition Summary: 03/03/23 02:07 Discharge Ordered Problem: new sp4 Symptoms: have improved sp4 Condition: Stable sp4 Diagnosis - Other specified viral diseases sp4 - Migraine without aura, intractable sp4 - Influenza B, acute systemic viral illness sp4 Followup: sp4 - With: Private Physician - When: 7 - 10 days - Reason: Recheck today's complaints Discharge Instructions: - Discharge Summary Sheet sp4 - Viral Illness, Adult sp4 Forms: - Patient Portal Instructions sp4 Prescriptions: - dextromethorphan-guaifenesin 10-200 mg Oral capsule - take 2 capsule ORAL route every 6 hours PRN cough; 60 capsule; Refills: 0, sp4 Product Selection Permitted - Ibuprofen 800 mg Oral Tablet - take 1 tablet ORAL route every 8 hours As needed take with food; 30 tablet; sp4 Refills: 0, Product Selection Permitted - Tramadol 50 mg Oral Tablet - take 1 tablet ORAL route every 8 hours as needed; 12 tablet; Refills: 0, sp4 Product Selection Permitted - promethazine 25 mg Oral Tablet - take 1 tablet ORAL route every 6 hours As needed; 20 tablet; Refills: 0, sp4 Product Selection Permitted - Tamiflu 75 mg Oral capsule - take 1 tablet ORAL route every 12 hours for 5 days; 10 tablet; Refills: 0, sp4 Product Selection Permitted Signatures: Dispatcher [employer] Soumya Dean RN RN kl Johnson, Juwairiyah, RN RN jj7 Neftali Ashford MD MD sp4
[2023-03-03 02:24] VITALS: TEMP 99.1
[2023-03-03 02:41] VITALS: BP 115/76; O2SAT 97
== END 2023-03-03 02:16 | disposition home or self-care (01) ==
LOC: ER 22:59
DX: J10.1 Influenza due to other identified influenza virus with other respiratory manifestations (principal); G43.019 Migraine without aura, intractable, without status migrainosus; B33.8 Other specified viral diseases; Z11.52 Encounter for screening for COVID-19
CPT/HCPCS: 96361; 81025; 0240U; 96375; 96374; 99284; J2765; J1200; J7030